=== PATIENT | male | born 1955 | race Caucasian/White ===

== ENCOUNTER 2018-05-04 08:12 | Day surgery (SDC) | payer MEDICARE, OTHER ==
[~2018-05-04] VITALS: Ht 182.9 cm; Wt 99.1 kg
[2018-05-04] MEDS ORDERED: 0.9% SODIUM CHLORIDE 10 ML SYRINGE IVP PRN (08:30)
[2018-05-04] MEDS ORDERED: METOPROLOL TARTRATE 50 MG TABLET PO PRN (08:30)
[2018-05-04 09:19] LABS: ANION GAP 7 mmol/L (8-16); CALCIUM, TOTAL 9.4 mg/dL (8.8-10.5); CARBON DIOXIDE 31 mmol/L (22-29); CHLORIDE 102 mmol/L (98-107); CREATININE 0.99 mg/dL (0.60-1.30); GLOMERULAR FILTR. RATE CALC > 60 mL/min (>60); GLUCOSE,RANDOM 146 mg/dL (70-110); POTASSIUM 3.5 mmol/L (3.5-5.1); SODIUM SERUM 140 mmol/L (136-145); UREA NITROGEN, BLOOD 21 mg/dL (7-18)
== END 2018-05-04 09:17 | disposition home or self-care (01) ==
LOC: SURGERY 08:12 → EDSTATUS 10:00
PROVIDERS: ATTEND Internal Medicine Cardiovascular Disease
DX: I25.89 Other forms of chronic ischemic heart disease (principal); Z53.8 Procedure and treatment not carried out for other reasons; I11.0 Hypertensive heart disease with heart failure; I50.9 Heart failure, unspecified; E11.9 Type 2 diabetes mellitus without complications; E78.5 Hyperlipidemia, unspecified; I44.0 Atrioventricular block, first degree; Z79.4 Long term (current) use of insulin; Z79.84 Long term (current) use of oral hypoglycemic drugs; Z79.82 Long term (current) use of aspirin; Z89.422 Acquired absence of other left toe(s); Z89.421 Acquired absence of other right toe(s); Z86.73 Personal history of transient ischemic attack (TIA), and cerebral infarction without residual deficits; Z86.79 Personal history of other diseases of the circulatory system; Z79.01 Long term (current) use of anticoagulants; Z79.899 Other long term (current) drug therapy
CPT/HCPCS: 93005